=== PATIENT | female | born 1970 | race Caucasian/White ===

== ENCOUNTER 2016-12-20 07:34 | Emergency (ER) | payer MEDICARE, OTHER ==
[~2016-12-20] VITALS: Ht 152.4 cm; Wt 54.5 kg
[~2016-12-20 07:34] MED LIST: ASEN5TAB6 SL; TRAZ-147 PO
[2016-12-20] MEDS ORDERED: CHLO10 PO (07:39)
[2016-12-20] MEDS ORDERED: LISI-660 PO (07:39)
[2016-12-20 07:56] VITALS: BP 146/84
== END 2016-12-20 08:25 | disposition home or self-care (01) ==
LOC: EMS 07:35
DX: K08.89 Other specified disorders of teeth and supporting structures (principal); Z88.6 Allergy status to analgesic agent
CPT/HCPCS: 99283

== ENCOUNTER 2017-05-18 06:59 | Emergency (ER) | payer MEDICARE, OTHER ==
[~2017-05-18] VITALS: Ht 152.4 cm; Wt 54.5 kg
[~2017-05-18 06:59] MED LIST changes: -ASEN5TAB6 SL; +CHLO10 PO; +LISI-660 PO; -TRAZ-147 PO
[2017-05-18] MEDS ORDERED: TraMADol HCL 50 MG TABLET PO ONE (07:45)
[2017-05-18 08:01] LABS: APPEARANCE,URINE CLEAR (CLEAR); GLUCOSE, URINE (UA) NEGATIVE (NEGATIVE); KETONES,URINE 15 mg/dL (NEGATIVE); LEUKOCYTE ESTERASE ,URINE NEGATIVE (NEGATIVE); OCCULT BLOOD,URINE TRACE (NEGATIVE); PH,URINE 5.5 (5.0-8.0); PROTEIN,URINE TRACE (NEGATIVE)
[2017-05-18 08:04] LABS: ADD UA MICROSCOPIC YES
[2017-05-18 08:12] LABS: FINE GRANULAR CASTS,URINE 0-2 /LPF (None Seen); HYALINE CASTS, URINE 0-2 /LPF (None Seen); RBC,URINE 0-2 /HPF (0-2); SQUAMOUS EPITHELIAL CELL,UR Few /LPF (None Seen); WBC,URINE 0-2 /HPF (0-5)
[2017-05-18 08:14] VITALS: BP 150/90
[2017-05-18] MEDS ORDERED: ONDANSETRON HCL 4 MG TABLET PO ONE (08:15)
[2017-05-18] MEDS ORDERED: METRONIDAZOLE 0.75% VG ONE (08:30)
[2017-05-18] MEDS ORDERED: CYCLOBENZAPRINE HCL 10 MG TABLET PO ONE (08:30)
[2017-05-19] MEDS ORDERED: MICO1COM58 VG (07:28)
[2017-05-19] MEDS ORDERED: TRAZ150 PO (07:28)
== END 2017-05-18 08:41 | disposition home or self-care (01) ==
LOC: EMS 07:01
DX: N76.0 Acute vaginitis (principal); M54.5 Low back pain; I10 Essential (primary) hypertension; Z88.6 Allergy status to analgesic agent
CPT/HCPCS: 81001; 84703; 99284; Q0162

== ENCOUNTER 2017-05-19 07:13 | Inpatient (IN) | payer MEDICARE, MEDICAID ==
[~2017-05-19] VITALS: Ht 152.4 cm; Wt 58.0 kg
[2017-05-19] MEDS ORDERED: MICO1COM58 VG (07:28)
[2017-05-19] MEDS ORDERED: TRAZ150 PO (07:28)
[2017-05-19 07:56] LABS: BASOPHILS # (AUTO) 0.03 K/uL (0.00-0.20); BASOPHILS % (AUTO) 0.4 % (0.0-2.0); EOSINOPHILS % (AUTO) 0.05 % (1.0-6.0); HEMATOCRIT 43.2 % (36-46); LYMPHOCYTES # (AUTO) 1.2 K/uL (1.0-4.8); LYMPHOCYTES % (AUTO) 13.8 % (22.0-44.0); MEAN CORPUSCULAR HEMOGLOBIN 33.1 pg (26.0-34.0); MEAN CORPUSCULAR HGB CONC 32.4 G/dL (31.0-37.0); MEAN CORPUSCULAR VOLUME 102 fL (80-100); MONOCYTES # (AUTO) 0.4 K/uL (0.1-1.0); MONOCYTES % (AUTO) 5.2 % (2.0-9.0); NEUTROPHILS # (AUTO) 6.7 K/uL (1.8-7.7); NEUTROPHILS % (AUTO) 80.5 % (40.0-70.0); PLATELET COUNT (AUTO) 245 K/uL (150-450); RED BLOOD CELL COUNT(AUTO) 4.23 MIL/uL (4.00-5.20); RED CELL DISTRIBUTION WIDTH 13.2 % (11.5-14.5); WHITE BLOOD COUNT (AUTO) 8.3 K/uL (4.5-11.0)
[2017-05-19] MEDS ORDERED: HALOPERIDOL 5 MG TABLET PO ONE (08:00)
[2017-05-19] MEDS ORDERED: LORazepam 2 MG TABLET PO ONE (08:00)
[2017-05-19 08:04] LABS: ANION GAP 5 mmol/L (8-16); CARBON DIOXIDE 30 mmol/L (22-29); CHLORIDE 97 mmol/L (98-107); CREATININE 0.91 mg/dL (0.60-1.30); GLOMERULAR FILTR. RATE CALC > 60 mL/min (>60); POTASSIUM 3.8 mmol/L (3.5-5.1); SODIUM SERUM 132 mmol/L (136-145); UREA NITROGEN, BLOOD 7 mg/dL (7-18)
[2017-05-19 08:10] LABS: ALANINE AMINOTRANSFERASE 61 U/L (12-78); ALBUMIN 4.3 g/dL (3.4-5.0); ASPARTATE AMINOTRANSFERASE 45 U/L (15-37); BILIRUBIN,TOTAL 0.5 mg/dL (0.1-1.0); TOTAL PROTEIN, SERUM 6.9 g/dL (6.4-8.2)
[2017-05-19 08:18] LABS: RBC MORPHOLOGY COMMENT ABNORMAL RBC MORPH
[2017-05-19 08:46] LABS: GLUCOSE, URINE (UA) NEGATIVE (NEGATIVE); KETONES,URINE NEGATIVE (NEGATIVE); LEUKOCYTE ESTERASE ,URINE NEGATIVE (NEGATIVE); OCCULT BLOOD,URINE SMALL (NEGATIVE); PH,URINE 5.5 (5.0-8.0); PROTEIN,URINE SEE CONFIRM (NEGATIVE)
[2017-05-19 09:21] LABS: APPEARANCE,URINE HAZY (CLEAR)
[2017-05-19 09:22] LABS: ADD UA MICROSCOPIC YES; SULFOSALICYLIC ACID,URINE Trace (Negative)
[2017-05-19 09:23] LABS: WBC,URINE 0-2 /HPF (0-5)
[2017-05-19 09:24] LABS: SQUAMOUS EPITHELIAL CELL,UR Few /LPF (None Seen)
[2017-05-19 11:00] VITALS: BP 139/90
[2017-05-19] MEDS ORDERED: INFLUENZA VIRUS VACCINE QVS 2017-18 (3YR+)/PF 60 MCG/0.5 ML SYRINGE IM ONE (11:15)
[2017-05-19] MEDS ORDERED: -PHARMACY VACCINE NOTE- MISC ONE ×2 (11:15)
[2017-05-19 16:28] VITALS: BP 113/65
[2017-05-19] MEDS: ARIPiprazole 10 MG TABLET PO SCH (17:30)
[2017-05-19] MEDS: LISINOPRIL 5 MG TABLET PO SCH (17:31)
[2017-05-20] MEDS: LORazepam 2 MG TABLET PO PRN ×3 (00:14→17:34)
[2017-05-20] MEDS: HALOPERIDOL 5 MG TABLET PO PRN ×2 (00:14→10:38)
[2017-05-20 06:04] VITALS: BP 104/70
[2017-05-20] MEDS ORDERED: -PHARMACY VACCINE NOTE- MISC ONE ×2 (06:15)
[2017-05-20 08:10] VITALS: BP 108/83
[2017-05-20] MEDS: LISINOPRIL 5 MG TABLET PO SCH (09:09)
[2017-05-20] MEDS: ARIPiprazole 10 MG TABLET PO SCH (09:09)
[2017-05-20 09:41] LABS: CHOL/HDL RATIO 1.5 (3.9-5.7); THYROID STIMULATING HORMONE 3.2 uIU/mL (0.36-3.74)
[2017-05-20] MEDS ORDERED: ARIPiprazole 10 MG TABLET PO ONE (11:45)
[2017-05-20 16:07] VITALS: BP 109/68
[2017-05-21 00:58] VITALS: BP 114/84
[2017-05-21] MEDS: ZOLPIDEM TARTRATE 10 MG TABLET PO PRN ×2 (01:01→20:06)
[2017-05-21 06:11] VITALS: BP 138/89
[2017-05-21] MEDS: HALOPERIDOL 5 MG TABLET PO PRN (07:07)
[2017-05-21] MEDS ORDERED: ARIPiprazole 10 MG TABLET PO SCH (09:00)
[2017-05-21 09:36] VITALS: BP 108/86
[2017-05-21] MEDS: LORazepam 2 MG TABLET PO PRN (09:46)
[2017-05-21] MEDS: LISINOPRIL 5 MG TABLET PO SCH (09:46)
[2017-05-21] MEDS: ARIPiprazole 15 MG TABLET PO SCH (09:46)
[2017-05-21 16:18] VITALS: BP 124/80
[2017-05-22] MEDS: LORazepam 2 MG TABLET PO PRN ×3 (00:11→16:22)
[2017-05-22 06:41] VITALS: BP 125/96
[2017-05-22 08:44] VITALS: BP 129/98
[2017-05-22] MEDS: ARIPiprazole 15 MG TABLET PO SCH (08:45)
[2017-05-22] MEDS: LISINOPRIL 5 MG TABLET PO SCH (08:45)
[2017-05-22] MEDS ORDERED: ARIPiprazole LAUROXIL ER SUSPENSION 882 MG/3.2 ML SYRINGE IM ONE (16:00)
[2017-05-22] MEDS: HALOPERIDOL 5 MG TABLET PO PRN (16:22)
[2017-05-22 16:48] VITALS: BP 128/81
[2017-05-22] MEDS ORDERED: TraZODone HCL 100 MG TABLET PO SCH (21:00)
[2017-05-23 05:27] VITALS: BP 91/62
[2017-05-23] MEDS: LORazepam 2 MG TABLET PO PRN (06:28)
[2017-05-23 08:14] VITALS: BP 126/79
[2017-05-23 08:24] LABS: ANION GAP 10 mmol/L (8-16); CALCIUM, TOTAL 9.1 mg/dL (8.8-10.5); CARBON DIOXIDE 27 mmol/L (22-29); CHLORIDE 102 mmol/L (98-107); CREATININE 0.75 mg/dL (0.60-1.30); GLOMERULAR FILTR. RATE CALC > 60 mL/min (>60); POTASSIUM 3.5 mmol/L (3.5-5.1); SODIUM SERUM 139 mmol/L (136-145); UREA NITROGEN, BLOOD 10 mg/dL (7-18)
[2017-05-23] MEDS ORDERED: TRAZ300T2 PO (08:26)
[2017-05-23] MEDS ORDERED: LISI-660 PO (08:26)
[2017-05-23] MEDS ORDERED: ARIP30TA PO (08:26)
[2017-05-23] MEDS: ARIPiprazole 15 MG TABLET PO SCH (08:39)
[2017-05-23] MEDS: LISINOPRIL 5 MG TABLET PO SCH (08:39)
== END 2017-05-23 14:50 | disposition home or self-care (01) | DRG 885 ==
LOC: EMS 07:13 → B2S 08:34
PROVIDERS: ADMIT Psychiatry & Neurology Psychiatry; ATTEND Psychiatry & Neurology Psychiatry
PROC: 3E0234Z Introduction of Serum, Toxoid and Vaccine into Muscle, Percutaneous Approach (ICD-10-PCS; principal; 2017-05-20)
DX: F20.0 Paranoid schizophrenia (principal); R45.851 Suicidal ideations; E87.1 Hypo-osmolality and hyponatremia; N76.0 Acute vaginitis; F32.9 Major depressive disorder, single episode, unspecified; F17.210 Nicotine dependence, cigarettes, uncomplicated; F12.90 Cannabis use, unspecified, uncomplicated; G47.00 Insomnia, unspecified; F10.10 Alcohol abuse, uncomplicated; G89.29 Other chronic pain; M54.9 Dorsalgia, unspecified; E03.9 Hypothyroidism, unspecified; I10 Essential (primary) hypertension; Z88.6 Allergy status to analgesic agent; Z79.899 Other long term (current) drug therapy; Z90.710 Acquired absence of both cervix and uterus; Z87.440 Personal history of urinary (tract) infections; Z71.51 Drug abuse counseling and surveillance of drug abuser; Z71.41 Alcohol abuse counseling and surveillance of alcoholic; Z23 Encounter for immunization; Z91.19 Patient's noncompliance with other medical treatment and regimen; Z91.5 Personal history of self-harm
CPT/HCPCS: 84439; 84443; 90471; 99285; G0480

== ENCOUNTER 2018-06-22 08:25 | Emergency (ER) | payer MEDICARE, OTHER ==
[~2018-06-22] VITALS: Ht 165.1 cm; Wt 72.7 kg
[~2018-06-22 08:25] MED LIST changes: +ARIP30TA PO; -CHLO10 PO; +TRAZ300T2 PO
[2018-06-22] MEDS ORDERED: IPRATROPIUM BROMIDE 0.5 MG/2.5 ML NEB SOLUTION NEB ONE (10:00)
[2018-06-22] MEDS ORDERED: ALBUTEROL SULFATE 2.5 MG/0.5 ML NEB SOLUTION NEB ONE (10:00)
[2018-06-22 10:20] VITALS: BP 133/100
[2018-06-22] MEDS ORDERED: ALBUTEROL SULFATE HFA 90 MCG/PUFF 8 GM INHALER IH ONE (10:30)
== END 2018-06-22 10:31 | disposition home or self-care (01) ==
LOC: EMS 08:27
DX: J40 Bronchitis, not specified as acute or chronic (principal); H66.92 Otitis media, unspecified, left ear; F31.9 Bipolar disorder, unspecified; F20.9 Schizophrenia, unspecified; Z90.710 Acquired absence of both cervix and uterus; Z88.6 Allergy status to analgesic agent; Z79.899 Other long term (current) drug therapy
CPT/HCPCS: 94640; J3535